=== PATIENT | male | born 1995 | race Hispanic/Latino ===

== ENCOUNTER 2017-06-18 03:02 | Emergency (ER) | payer OTHER ==
[~2017-06-18] VITALS: Ht 182.9 cm; Wt 70.0 kg
[2017-06-18 03:42] LABS: BASOPHIL (%) 0.7 % (0-1); EOSINOPHIL (%) 1.4 % (0-5); EOSINOPHIL COUNT 0.1 K/uL (0-0.3); HEMATOCRIT 41.6 % (38.0-50.0); HEMOGLOBIN 14.3 G/DL (12.5-16.6); IMMATURE GRANULOCYTE (%) 0.2 % (0.0-0.7); LYMPHOCYTE (%) 34.4 % (15-42); MCH 29.9 PG (29.0-34.0); MCHC 34.4 G/DL (30.0-36.0); MONOCYTE (%) 10.3 % (3-12); MONOCYTE COUNT 0.6 K/uL (0-0.8); NEUTROPHIL COUNT 3.1 K/uL (1.8-6.4); PLATELET COUNT 197 K/uL (156-360); RBC DIS.WIDTH-CV 12.1 % (11.8-14.6); RED BLOOD COUNT 4.78 M/uL (4.00-5.50); WHITE BLOOD COUNT 5.8 K/uL (4.1-10.2)
[2017-06-18 03:50] LABS: ALBUMIN 4.3 g/dL (3.2-4.8); CHLORIDE 105 mEq/L (99-109); POTASSIUM 3.6 mEq/L (3.7-5.4); SODIUM 140 mEq/L (136-147)
[2017-06-18 03:51] LABS: MAGNESIUM 2.4 mg/dL (1.3-2.7)
[2017-06-18 03:53] LABS: GLUCOSE 90 mg/dL (70-99); TOTAL PROTEIN 7.1 g/dL (6.4-8.3)
[2017-06-18 03:55] LABS: TOTAL BILIRUBIN 0.5 mg/dL (0.0-1.0)
[2017-06-18 03:56] LABS: ALKALINE PHOSPHATASE 69 IU/L (3-129)
[2017-06-18 03:58] LABS: AST (GOT) 37 IU/L (2-34); UREA NITROGEN (BUN) 16 mg/dL (9-23)
[2017-06-18 03:59] LABS: ALT (GPT) 36 IU/L (3-49)
[2017-06-18 04:02] LABS: TROP-I INTERPRETATION NEGATIVE; TROPONIN-I < 0.01 ng/mL (0.0-0.30)
[2017-06-18 04:06] LABS: GFR ESTIMATE (CALCULATED) > 59 mL/min/ (58.99-99999)
[2017-06-18 07:23] LABS: APPEARANCE CLEAR ((CLEAR)); BILIRUBIN NEGATIVE; BLOOD NEGATIVE; COLOR STRAW ((YELLOW)); GLUCOSE (STRIP) NEGATIVE; KETONES NEGATIVE; LEUKOCYTES NEGATIVE; NITRITE NEGATIVE; PROTEIN (STRIP) NEGATIVE; SPECIFIC GRAVITY 1.043 (1.000-1.030); UCUL ADDED? NO; UROBILINOGEN 0.2 MG/DL (0.2-1.0)
[2017-06-18 11:10] VITALS: BP 111/65
[2017-06-18] MEDS ORDERED: KEPPRA500 MG PO (11:10)
== END 2017-06-18 11:41 | disposition home or self-care (01) ==
LOC: EME 03:02
PROVIDERS: Emergency Medicine
DX: R56.9 Unspecified convulsions (principal); R42 Dizziness and giddiness
CPT/HCPCS: 70470; 70551; 72125; 80053; 81003; 83735; 84484; 85025; 93005; 95819; 99281; 99285; J1953; J7030; J7050

== ENCOUNTER 2017-06-19 12:05 | Emergency (ER) | payer OTHER ==
[~2017-06-19] VITALS: Ht 188 cm; Wt 66.8 kg
[~2017-06-19 12:05] MED LIST: KEPPRA500 MG PO
[2017-06-19 12:41] LABS: HEMATOCRIT 41.3 % (38.0-50.0); MCH 29.6 PG (29.0-34.0); MCHC 33.9 G/DL (30.0-36.0); MCV 87.3 FL (86-99); PLATELET COUNT 196 K/uL (156-360); RBC DIS.WIDTH-SD 38.8 % (39-53); RED BLOOD COUNT 4.73 M/uL (4.00-5.50); WHITE BLOOD COUNT 4.4 K/uL (4.1-10.2)
[2017-06-19 12:54] LABS: CHLORIDE 109 mEq/L (99-109); POTASSIUM 4.1 mEq/L (3.7-5.4); SODIUM 142 mEq/L (136-147)
[2017-06-19 12:55] LABS: GLUCOSE 87 mg/dL (70-99)
[2017-06-19 12:59] LABS: CREATININE 0.9 mg/dL (0.6-1.3); GFR ESTIMATE (CALCULATED) > 59 mL/min/ (58.99-99999)
[2017-06-19 13:00] LABS: UREA NITROGEN (BUN) 10 mg/dL (9-23)
[2017-06-19 19:31] VITALS: BP 124/75
== END 2017-06-19 19:32 | disposition home or self-care (01) ==
LOC: EME 12:05
DX: R55 Syncope and collapse (principal); Z86.69 Personal history of other diseases of the nervous system and sense organs
CPT/HCPCS: 70498; 71045; 80048; 85027; 93005; 93880; J7030